=== PATIENT | female | born 1985 | race Hispanic/Latino ===

== ENCOUNTER 2017-11-13 10:23 | Emergency (ER) | payer OTHER ==
[~2017-11-13 10:23] MED LIST: PEPCID20 M1 PO; REGLAN10 M1 PO; ZOFRAN ODT4 M1 SL
--- NOTE | 2017-11-13 11:08 | ED GENERAL ADULT ---
History of Present Illness General Chief Complaint: General Adult Stated Complaint: NAUSEA AND VOMITTING X1 WEEK Source: patient Exam Limitations: no limitations Vital Signs & Intake/Output Vital Signs & Intake/Output Vital Signs Date Time Temp Pulse Resp B/P B/P Pulse O2 O2 Flow FiO2 Mean Ox Delivery Rate 11/13 1234 98.3 77 16 152/84 98 Room Air 11/13 1033 98.0 96 22 157/97 Allergies Coded Allergies: No Known Allergies (11/02/17) Reconcile Medications Famotidine (Pepcid) 20 MG TABLET 1 TAB PO BID PRN ABDOMINAL PAIN Metoclopramide HCl (Reglan) 10 MG TABLET 1 TAB PO 4 TIMES/DAY PRN nausea 30 minutes before meals and bedtime Metoclopramide HCl (Reglan) 10 MG TABLET 1 TAB PO BID PRN NAUSEA 30 minutes before meals and bedtime Ondansetron (Zofran Odt) 4 MG TAB.RAPDIS 1 TAB SL TID PRN NAUSEA Triage Note: PER PT VOMITING SINCE 299 CANT STOP NOW PAIN FROM VOMITING SEEN LAST WEEK FOR SAME LMP 1 WEEK AGO Triage Nurses Notes Reviewed? yes Onset: Gradual Duration: day(s): Timing: constant : No Patient currently breastfeeds: No HPI: 32-year-old female with a history of opiate abuse presenting with nausea, vomiting, and upper abdominal pain since yesterday. Patient reports that she had similar symptoms for 5 days' duration last week. She then had 4 days where she was symptom-free, and symptoms returned yesterday. Patient notes that she was previously taking Percocet, but wanted to stop. She began taking her friend 's Suboxone, but then ran out. She reports when she ran out is when her initial symptoms began last week. She was able to get more Suboxone for few days, which is when her symptoms resolved for 4 days. Her symptoms then returned yesterday when she again ran out of the Suboxone. Denies fevers, chest pain, shortness of breath, diarrhea, dysuria. (Belem Hall) Past History Travel History Traveled to [place] past 21 day No Medical History Any Pertinent Medical History? 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 No (Belem Hall) Review of Systems Review of Systems Constitutional: Reports: no symptoms. EENTM: Reports: no symptoms. Respiratory: Reports: no symptoms. Cardiovascular: Reports: no symptoms. GI: Reports: see HPI. Genitourinary: Reports: no symptoms. Musculoskeletal: Reports: no symptoms. Skin: Reports: no symptoms. Neurological/Psychological: Reports: no symptoms. Hematologic/Endocrine: Reports: no symptoms. (Belem Hall) Physical Exam Physical Exam General Appearance: well developed/nourished, no apparent distress, alert, awake Head: atraumatic, normal appearance Eyes: Bilateral: normal appearance. Neck: normal inspection Respiratory: normal breath sounds, lungs clear Cardiovascular: regular rate/rhythm Gastrointestinal: soft, non-tender Back: normal inspection Extremities: normal inspection Neurologic/Psych: awake, alert, oriented x 3, normal gait, normal mood/affect Skin: intact, normal color, warm/dry Core Measures ACS in differential dx? No CVA/TIA Diagnosis: No Sepsis Present: No Sepsis Focused Exam Completed? No (Belem Hall) Progress Differential Diagnoses I considered the following diagnoses in my evaluation of the patient: [Opiate withdrawal versus gastritis versus GERD versus peptic ulcer versus biliary versus pancreatitis] Plan of Care: Orders Procedure Date/time Status Add-on Test (ER Only) 11/13 1123 Active HUMAN BETA HCG SCREEN 11/13 1114 Complete LIPASE 11/13 1026 Complete COMPREHENSIVE METABOLIC PANEL 11/13 1026 Complete CBC WITHOUT DIFFERENTIAL 11/13 1026 Complete Laboratory Tests 11/13/17 1114: Anion Gap 14, Estimated GFR > 60, BUN/Creatinine Ratio 30.0 H, Glucose 144 H, Calcium 10.7 H, Total Bilirubin 0.5, AST 21, ALT 32, Alkaline Phosphatase 102, Total Protein 8.0, Albumin 4.8, Globulin 3.2, Albumin/Globulin Ratio 1.5, Lipase 97, Total Beta HCG NEGATIVE, CBC w Diff MAN DIFF ORDERED, RBC 4.55, MCV 90.8, MCH 30.5, MCHC 33.5, RDW 15.2 H, MPV 10.5 H, Gran % 92.5 H, Lymphocytes % 6.7 L, Monocytes % 0.8 L, Eosinophils % 0, Basophils % 0, Absolute Granulocytes 9.9 H, Absolute Lymphocytes 0.7 L, Absolute Monocytes 0.1, Absolute Eosinophils 0, Absolute Basophils 0, Platelet Estimate VERIFIED BY SMEAR, Anisocytosis 1+, Stomatocytes 1+ 11/13/17 1026: Urine Test Cancelled Labs unremarkable. Likely in opiate withdrawal. Patient given a dose of morphine, Zofran, and IV fluids to help with her symptoms. Patient was instructed that she needs to follow up with [facility] to establish care, and for evaluation of Suboxone management. Patient given strict return precautions. Initial ED EKG: none (Belem Hall) Departure Departure Disposition: HOME OR SELF CARE Condition: Stable Clinical Impression Primary Impression: Nausea and vomiting Secondary Impressions: Abdominal pain Referrals: Patient Has No Primary Care Dr (PCP/Family) Additional Instructions: Use Reglan as needed for nausea and vomiting. Follow-up with [facility] for reevaluation. Return to the emergency department for any new or worsening symptoms. [facility]: [phone] Departure Forms: Customer Survey General Discharge Information Prescriptions: Current Visit Scripts Metoclopramide HCl (Reglan) 1 TAB PO 4 TIMES/DAY PRN nausea #21 TAB 30 minutes before meals and bedtime (Belem Hall) PA/CUSTOMER AGENT Co-Sign Statement Statement: ED Attending supervision documentation- [] I saw and evaluated the patient. I have also reviewed all the pertinent lab results and diagnostic results. I agree with the findings and the plan of care as documented in the PA's/CUSTOMER AGENT's documentation. [X] I have reviewed the ED Record and agree with the PA's/CUSTOMER AGENT's documentation. [] Additions or exceptions (if any) to the PAs/CUSTOMER AGENT's note and plan are summarized below: [] (Rich DARLING,Xavier Hugo) Critical Care Note Critical Care Note Critical Care Time: non-applicable (Belem Hall)
[2017-11-13 11:40] LABS: ABSOLUTE BASOPHIL COUNT 0 /CUMM (0.0-0.2); ABSOLUTE EOSINOPHIL COUNT 0 /CUMM (0.0-0.7); ABSOLUTE GRANULOCYTE CT 9.9 /CUMM (1.4-6.5); ABSOLUTE LYMPH COUNT 0.7 /CUMM (1.2-3.4); ABSOLUTE MONOCYTE COUNT 0.1 /CUMM (0.10-0.60); BASOPHIL % 0 % (0.0-2.0); EOSINOPHIL % 0 % (0-5); GRANULOCYTE % 92.5 % (42.2-75.2); HEMATOCRIT 41.3 % (37-47); MEAN CORPUSCULAR HGB 30.5 PG (27.0-31.0); MEAN CORPUSCULAR HGB CONC 33.5 G/DL (33.0-37.0); MEAN CORPUSCULAR VOLUME 90.8 FL (81.0-99.0); MEAN PLATELET VOLUME 10.5 FL (7.4-10.4); PLATELET COUNT 300 /CUMM (130-400); RBC DISTRIBUTION WIDTH 15.2 % (11.5-14.5); RED BLOOD CELL CT 4.55 /CUMM (4.20-5.40); WHITE BLOOD CELL COUNT 10.7 /CUMM (4.8-10.8)
[2017-11-13 12:34] VITALS: BP 152/84
[2017-11-13] MEDS ORDERED: REGLAN10 M1 PO (12:43)
[2017-11-13] MEDS ORDERED: SUBOXONE 8 MG-1 EACH SL (19:50)
== END 2017-11-13 13:01 ==
LOC: ERH 10:23
PROVIDERS: Physician Assistant Medical
DX: R11.2 Nausea with vomiting, unspecified (principal); R10.10 Upper abdominal pain, unspecified
CPT/HCPCS: 81025; 96374; 96375; 96376; J2405

== ENCOUNTER 2017-11-13 18:52 | Emergency (ER) | payer OTHER ==
[~2017-11-13] VITALS: Ht 162.6 cm; Wt 81.6 kg
[2017-11-13 18:59] VITALS: BP 178/93
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
[2017-11-13] MEDS ORDERED: SUBOXONE 8 MG-1 EACH SL (19:50)
== END 2017-11-13 19:55 ==
LOC: ERH 18:52
DX: F11.20 Opioid dependence, uncomplicated (principal)